=== PATIENT | male | born 1945 | race Native Hawaiian/Other Pacific Islander ===

== ENCOUNTER 2016-11-23 21:54 | Emergency (ER) | payer OTHER, MEDICARE ==
[~2016-11-23] VITALS: Ht 185.4 cm; Wt 129.7 kg
[~2016-11-23 21:54] MED LIST: CITALOPRAM40 MG PO; ELIQUIS5 MG OR; GLIM4TAB PO; HYDR25TA60 PO; JANUVIA100 MG PO; LIPITOR20 MG PO; METF500T PO; METO50TA63 PO; PANT40TA PO; VITAMIN C1 CH1 PO
[2016-11-23] MEDS ORDERED: FARXIGA5 MG PO (22:11)
[2016-11-23 23:37] VITALS: BP 165/81; TEMP 97.6
== END 2016-11-23 23:39 | disposition home or self-care (01) ==
LOC: ED 21:54
DX: S09.8XXA Other specified injuries of head, initial encounter (principal); W18.09XA Striking against other object with subsequent fall, initial encounter; Y92.098 Other place in other non-institutional residence as the place of occurrence of the external cause
CPT/HCPCS: 99283

== ENCOUNTER 2017-08-25 22:04 | Observation (INO) | payer OTHER, MEDICARE ==
[~2017-08-25] VITALS: Ht 185.4 cm; Wt 132.9 kg
[~2017-08-25 22:04] MED LIST changes: +FARXIGA5 MG PO
[2017-08-25 22:12] VITALS: BP 213/95; TEMP 98.3
[2017-08-26 00:28] LABS: PLATELET COUNT 148 K/uL (142-355)
[2017-08-26 00:34] LABS: POTASSIUM 4.1 mmol/L (3.6-5.2)
[2017-08-26 00:47] VITALS: BP 147/65
[2017-08-26 03:15] VITALS: BP 151/83; TEMP 97.6; Ht 185.4 cm; Wt 132.9 kg
[2017-08-26 04:00] VITALS: BP 141/87; TEMP 98.2
[2017-08-26 08:00] VITALS: BP 123/71; TEMP 98.2
[2017-08-26] MEDS ORDERED: METO25TA2 PO (11:34)
[2017-08-26] MEDS ORDERED: JANUMET XR1 TAB PO (11:34)
[2017-08-26] MEDS ORDERED: HM ASPIRIN EC325 MG PO (11:35)
[2017-08-26 12:00] VITALS: BP 135/75; TEMP 97.9
== END 2017-08-26 15:30 | disposition home or self-care (01) ==
LOC: ED 22:04 → MED/SURG 08-26 02:01
PROVIDERS: ADMIT Specialist
DX: I16.0 Hypertensive urgency (principal); G44.89 Other headache syndrome; R73.9 Hyperglycemia, unspecified; I25.10 Atherosclerotic heart disease of native coronary artery without angina pectoris
CPT/HCPCS: 36415; 80048; 82948; 85027; 96374; 96375; 96376; 99220; 99284; G0378; J1170; J2550; J3490

== ENCOUNTER 2017-09-06 09:14 | Emergency (ER) | payer OTHER, MEDICARE ==
[~2017-09-06] VITALS: Ht 185.4 cm; Wt 127.0 kg
[~2017-09-06 09:14] MED LIST changes: +HM ASPIRIN EC325 MG PO; +JANUMET XR1 TAB PO; +METO25TA2 PO
[2017-09-06 10:42] LABS: PLATELET COUNT 161 K/uL (142-355)
[2017-09-06 10:46] LABS: POTASSIUM 4.1 mmol/L (3.6-5.2); SODIUM 131 mmol/L (136-145)
[2017-09-06 15:09] VITALS: BP 164/89; TEMP 98.7
== END 2017-09-06 15:12 | disposition home or self-care (01) ==
LOC: ED 09:14
PROVIDERS: Specialist
DX: M54.89 Other dorsalgia (principal); N20.0 Calculus of kidney; R35.0 Frequency of micturition; R10.31 Right lower quadrant pain
CPT/HCPCS: 80048; 81000; 82272; 82947; 85027; 96365; 96374; 96375; 96376; 99284; J1815; J1885; J2175; J2405

== ENCOUNTER 2017-09-19 07:39 | Emergency (ER) | payer OTHER, MEDICARE ==
[~2017-09-19] VITALS: Ht 182.9 cm; Wt 122.5 kg
[2017-09-19 07:45] VITALS: TEMP 97.7
[2017-09-19] MEDS ORDERED: PROTONIX20 MG PO (08:12)
[2017-09-19] MEDS ORDERED: HYDR-3182 PO (08:13)
[2017-09-19] MEDS ORDERED: HYDROCHLOROT50 MG PO (08:16)
[2017-09-19] MEDS ORDERED: CIPRO500 MG PO (08:18)
[2017-09-19] MEDS ORDERED: CEFTIN250 MG OR (08:18)
[2017-09-19] MEDS ORDERED: METFTAB PO ×2 (08:21→08:24)
[2017-09-19 08:49] LABS: PLATELET COUNT 158 K/uL (142-355)
[2017-09-19 08:59] LABS: POTASSIUM 3.3 mmol/L (3.6-5.2)
[2017-09-19 09:33] LABS: PARTIAL THROMBOPLASTIN TIME 24.8 SECONDS (24.5-33.6)
[2017-09-19 12:00] VITALS: BP 138/76
== END 2017-09-19 14:15 | disposition home or self-care (01) ==
LOC: ED 07:39
DX: R41.0 Disorientation, unspecified (principal); R44.2 Other hallucinations; R00.0 Tachycardia, unspecified; I25.10 Atherosclerotic heart disease of native coronary artery without angina pectoris
CPT/HCPCS: 36415; 80053; 80307; 80320; 80329; 81000; 82550; 84484; 85027; 85610; 85730; 93005; 96374; 99285; J2060

== ENCOUNTER 2017-10-28 08:15 | Outpatient (CLI) | payer OTHER, MEDICARE ==
[~2017-10-28 08:15] MED LIST changes: +CEFTIN250 MG OR; +CIPRO500 MG PO; +HYDR-3182 PO; +HYDROCHLOROT50 MG PO; +METFTAB PO; +PROTONIX20 MG PO
== END 2017-10-28 21:38 | disposition home or self-care (01) ==
LOC: CT 08:15 → LABW 08:15 → CT 21:38
DX: N20.0 Calculus of kidney (principal); N39.0 Urinary tract infection, site not specified
CPT/HCPCS: 81000; 87086; 87088

== ENCOUNTER 2018-12-06 18:59 | Outpatient (CLI) | payer OTHER ==
[2018-12-06 19:23] LABS: PLATELET COUNT 125 K/uL (142-355)
[2018-12-06 19:31] LABS: POTASSIUM 4.2 mmol/L (3.6-5.2)
== END 2018-12-06 23:08 | disposition home or self-care (01) ==
LOC: LAB 18:59
PROVIDERS: Nurse Practitioner
DX: I10 Essential (primary) hypertension (principal)
CPT/HCPCS: 36415; 80053; 81000; 82043; 82306; 82570; 83735; 83970; 84100; 84155; 85027

== ENCOUNTER 2019-05-28 04:30 | Outpatient (CLI) | payer OTHER | END 2019-05-28 04:40 | disposition short-term general hospital (02) | LOC: AMB 04:30 | DX: R42 Dizziness and giddiness (principal); R51 Headache; H57.12 Ocular pain, left eye; R11.2 Nausea with vomiting, unspecified; W18.39XA Other fall on same level, initial encounter; Y93.89 Activity, other specified; Y92.018 Other place in single-family (private) house as the place of occurrence of the external cause | CPT/HCPCS: A0425; A0427 ==

== ENCOUNTER 2019-05-28 04:44 | Emergency (ER) | payer OTHER ==
[~2019-05-28] VITALS: Ht 185.4 cm; Wt 136.1 kg
[2019-05-28 05:35] LABS: PLATELET COUNT 133 K/uL (142-355)
[2019-05-28 05:42] LABS: POTASSIUM 3.6 mmol/L (3.6-5.2)
[2019-05-28 05:46] LABS: PARTIAL THROMBOPLASTIN TIME 29.8 SECONDS (24.5-33.6)
[2019-05-28 06:30] VITALS: BP 163/77; TEMP 97.8
== END 2019-05-28 06:30 | disposition short-term general hospital (02) ==
LOC: ED 04:44
PROVIDERS: Family Medicine
PROC: 0T9B70Z Drainage of Bladder with Drainage Device, Via Natural or Artificial Opening (ICD-10-PCS; principal; 2019-05-28)
DX: S06.340A Traumatic hemorrhage of right cerebrum without loss of consciousness, initial encounter (principal); S06.6X0A Traumatic subarachnoid hemorrhage without loss of consciousness, initial encounter; W18.39XA Other fall on same level, initial encounter; Y92.098 Other place in other non-institutional residence as the place of occurrence of the external cause
CPT/HCPCS: 51702; 80053; 85027; 85610; 85730; 93005; 96360; 96361; 96365; 96374; 96375; 99285; J2405; J2550

== ENCOUNTER 2020-10-01 12:20 | Inpatient (IN) | payer OTHER | END 2020-10-29 11:16 | disposition still patient (30) | LOC: PAVC 12:20 | PROVIDERS: ADMIT Internal Medicine; ATTEND Internal Medicine ==

== ENCOUNTER 2020-10-02 10:08 | Outpatient (CLI) | payer OTHER ==
[2020-10-02 10:41] LABS: PLATELET COUNT 101 K/uL (142-355)
== END 2020-10-02 20:56 | disposition home or self-care (01) ==
LOC: LAB 10:08
PROVIDERS: ATTEND Internal Medicine
DX: E11.22 Type 2 diabetes mellitus with diabetic chronic kidney disease (principal); F01.51 Vascular dementia, unspecified severity, with behavioral disturbance; E53.8 Deficiency of other specified B group vitamins; N40.0 Benign prostatic hyperplasia without lower urinary tract symptoms; D64.89 Other specified anemias; Z79.899 Other long term (current) drug therapy; E55.9 Vitamin D deficiency, unspecified
CPT/HCPCS: 80053; 80061; 82306; 82607; 82728; 82746; 83036; 83540; 84153; 84443; 85027; 87081

== ENCOUNTER 2020-10-07 17:59 | Outpatient (CLI) | payer OTHER | END 2020-10-07 23:15 | disposition home or self-care (01) | LOC: LAB 17:59 | PROVIDERS: ATTEND Internal Medicine | DX: R30.9 Painful micturition, unspecified (principal); R30.0 Dysuria | CPT/HCPCS: 81000 ==

== ENCOUNTER 2020-10-25 07:01 | Outpatient (CLI) | payer OTHER | END 2020-10-25 20:00 | disposition home or self-care (01) | LOC: LAB 07:01 | PROVIDERS: ATTEND Internal Medicine | DX: R82.998 Other abnormal findings in urine (principal); R30.0 Dysuria; R34 Anuria and oliguria | CPT/HCPCS: 81000; 87077; 87086; 87088; 87186 ==

== ENCOUNTER 2020-10-29 11:45 | Inpatient (IN) | payer OTHER | END 2020-11-29 12:22 | disposition still patient (30) | LOC: PAVC 11:45 | PROVIDERS: ADMIT Internal Medicine; ATTEND Internal Medicine ==

== ENCOUNTER 2020-11-03 22:08 | Emergency (ER) | payer OTHER ==
[~2020-11-03] VITALS: Ht 185.4 cm; Wt 136.1 kg
[2020-11-03 22:41] LABS: PLATELET COUNT 104 K/uL (142-355)
[2020-11-03 22:50] LABS: POTASSIUM 4.2 mmol/L (3.6-5.2)
[2020-11-03 23:35] VITALS: BP 129/66; TEMP 98.2
== END 2020-11-03 23:39 ==
LOC: ED 22:08
PROVIDERS: Family Medicine
DX: S50.01XA Contusion of right elbow, initial encounter (principal); N39.0 Urinary tract infection, site not specified; W18.39XA Other fall on same level, initial encounter; Y92.128 Other place in nursing home as the place of occurrence of the external cause
CPT/HCPCS: 80053; 81000; 85027; 87088; 99284

== ENCOUNTER 2020-11-14 11:12 | Outpatient (CLI) | payer OTHER | END 2020-11-14 22:13 | disposition home or self-care (01) | LOC: INF 11:12 | PROVIDERS: ATTEND Internal Medicine | DX: Z23 Encounter for immunization (principal) | CPT/HCPCS: 81000; 87088; 96372 ==

== ENCOUNTER 2020-11-14 17:07 | Outpatient (CLI) | payer OTHER | END 2020-11-14 22:25 | disposition home or self-care (01) | LOC: LAB 17:07 | PROVIDERS: ATTEND Internal Medicine | DX: N39.0 Urinary tract infection, site not specified (principal) | CPT/HCPCS: 81000; 87088 ==

== ENCOUNTER 2020-11-15 21:11 | Emergency (ER) | payer OTHER ==
[2020-11-15 22:22] LABS: PLATELET COUNT 106 K/uL (142-355)
[2020-11-15 22:30] LABS: POTASSIUM 4.2 mmol/L (3.6-5.2); SODIUM 134 mmol/L (136-145)
[2020-11-15 22:41] LABS: PARTIAL THROMBOPLASTIN TIME 27.1 SECONDS (24.5-33.6)
[2020-11-16 03:35] VITALS: BP 119/61; TEMP 98.9
== END 2020-11-16 03:35 ==
LOC: ED 21:11
PROVIDERS: Hospitalist
DX: B35.6 Tinea cruris (principal); N39.0 Urinary tract infection, site not specified; R06.02 Shortness of breath; G93.89 Other specified disorders of brain; Z20.828 Contact with and (suspected) exposure to other viral communicable diseases
CPT/HCPCS: 36415; 80053; 81000; 82550; 83605; 83880; 84484; 85027; 85610; 85730; 87040; 87077; 87205; 87635; 93005; 96360; 96361; 96365; 96366; 99284; J0132; J1956; U0003

== ENCOUNTER 2020-11-29 13:51 | Inpatient (IN) | payer OTHER | END 2020-12-29 11:26 | disposition still patient (30) | LOC: PAVC 13:51 | PROVIDERS: ADMIT Internal Medicine; ATTEND Internal Medicine ==

== ENCOUNTER 2020-12-29 11:46 | Inpatient (IN) | payer OTHER | END 2021-01-29 15:45 | disposition still patient (30) | LOC: PAVC 11:46 | PROVIDERS: ADMIT Internal Medicine; ATTEND Internal Medicine ==

== ENCOUNTER 2021-01-29 16:38 | Inpatient (IN) | payer OTHER | END 2021-02-28 08:00 | disposition still patient (30) | LOC: PAVC 16:38 | PROVIDERS: ADMIT Internal Medicine; ATTEND Internal Medicine ==

== ENCOUNTER 2021-02-28 09:00 | Inpatient (IN) | payer OTHER | END 2021-03-31 08:00 | disposition still patient (30) | LOC: PAVC 09:00 | PROVIDERS: ADMIT Internal Medicine; ATTEND Internal Medicine ==

== ENCOUNTER 2021-03-28 01:04 | Outpatient (CLI) | payer OTHER | END 2021-03-28 22:00 | disposition home or self-care (01) | LOC: LAB 01:04 | PROVIDERS: ATTEND Internal Medicine | DX: R82.998 Other abnormal findings in urine (principal) | CPT/HCPCS: 81000; 87077; 87086; 87088; 87186 ==

== ENCOUNTER 2021-03-31 09:00 | Inpatient (IN) | payer OTHER | END 2021-05-01 13:51 | disposition still patient (30) | LOC: PAVC 09:00 | PROVIDERS: ADMIT Internal Medicine; ATTEND Internal Medicine ==

== ENCOUNTER 2021-04-01 08:44 | Outpatient (CLI) | payer OTHER ==
[2021-04-01 10:39] LABS: PLATELET COUNT 97 K/uL (142-355)
[2021-04-01 11:26] LABS: POTASSIUM 4.2 mmol/L (3.6-5.2)
== END 2021-04-01 22:36 | disposition home or self-care (01) ==
LOC: LAB 08:44
PROVIDERS: ATTEND Internal Medicine
DX: E11.22 Type 2 diabetes mellitus with diabetic chronic kidney disease (principal); N18.2 Chronic kidney disease, stage 2 (mild); N40.0 Benign prostatic hyperplasia without lower urinary tract symptoms
CPT/HCPCS: 80053; 80061; 82306; 82607; 82728; 82746; 83036; 83540; 84443; 85027

== ENCOUNTER 2021-04-23 15:15 | Outpatient (CLI) | payer OTHER | END 2021-04-23 22:17 | disposition home or self-care (01) | LOC: LAB 15:15 | PROVIDERS: ATTEND Internal Medicine | DX: R30.0 Dysuria (principal) | CPT/HCPCS: 81000; 87077; 87086; 87088; 87186 ==

== ENCOUNTER 2021-05-01 12:57 | Outpatient (CLI) | payer OTHER ==
[~2021-05-01] VITALS: Ht 154.9 cm; Wt 90.7 kg
== END 2021-05-01 23:00 | disposition home or self-care (01) ==
LOC: INF 12:57
PROVIDERS: ATTEND Internal Medicine
DX: N39.0 Urinary tract infection, site not specified (principal)
CPT/HCPCS: J0696

== ENCOUNTER 2021-05-01 14:17 | Inpatient (IN) | payer OTHER | END 2021-05-31 09:39 | disposition still patient (30) | LOC: PAVC 14:17 | PROVIDERS: ADMIT Internal Medicine; ATTEND Internal Medicine ==

== ENCOUNTER 2021-07-31 12:47 | Inpatient (IN) | payer OTHER | END 2021-08-31 09:09 | disposition still patient (30) | LOC: PAVC 12:47 | PROVIDERS: ADMIT Internal Medicine; ATTEND Internal Medicine ==

== ENCOUNTER 2021-08-31 09:34 | Inpatient (IN) | payer OTHER | END 2021-10-01 08:58 | disposition still patient (30) | LOC: PAVC 09:34 | PROVIDERS: ADMIT Internal Medicine; ATTEND Internal Medicine ==

== ENCOUNTER 2021-10-01 07:51 | Outpatient (CLI) | payer OTHER ==
[2021-10-01 08:54] LABS: PLATELET COUNT 91 K/uL (142-355)
[2021-10-01 09:33] LABS: POTASSIUM 4.3 mmol/L (3.6-5.2)
== END 2021-10-01 19:23 | disposition home or self-care (01) ==
LOC: LAB 07:51
PROVIDERS: ATTEND Internal Medicine
DX: E11.22 Type 2 diabetes mellitus with diabetic chronic kidney disease (principal); E11.65 Type 2 diabetes mellitus with hyperglycemia; N18.2 Chronic kidney disease, stage 2 (mild)
CPT/HCPCS: 80053; 80061; 82306; 82607; 82728; 82746; 83036; 83540; 84443; 85027

== ENCOUNTER 2021-10-01 13:17 | Inpatient (IN) | payer OTHER | END 2021-10-29 09:10 | disposition still patient (30) | LOC: PAVC 13:17 | PROVIDERS: ADMIT Internal Medicine; ATTEND Internal Medicine | DX: R56.9 Unspecified convulsions (principal); R13.11 Dysphagia, oral phase; R41.841 Cognitive communication deficit; M62.81 Muscle weakness (generalized); Z74.1 Need for assistance with personal care; R26.89 Other abnormalities of gait and mobility | CPT/HCPCS: 81000; 87088 ==

== ENCOUNTER 2021-10-08 12:54 | Outpatient (CLI) | payer OTHER ==
[2021-10-08 13:36] LABS: PLATELET COUNT 114 K/uL (142-355)
[2021-10-08 14:33] LABS: POTASSIUM 4.4 mmol/L (3.6-5.2)
== END 2021-10-08 19:21 | disposition home or self-care (01) ==
LOC: RAD 12:54
PROVIDERS: ATTEND Internal Medicine
DX: R94.2 Abnormal results of pulmonary function studies (principal); R05.9 Cough, unspecified
CPT/HCPCS: 80053; 85027

== ENCOUNTER 2021-10-08 21:17 | Outpatient (CLI) | payer OTHER | END 2021-10-08 23:27 | disposition home or self-care (01) | LOC: RAD 21:17 | PROVIDERS: ATTEND Internal Medicine | DX: I69.054 Hemiplegia and hemiparesis following nontraumatic subarachnoid hemorrhage affecting left non-dominant side (principal); I67.2 Cerebral atherosclerosis ==

== ENCOUNTER 2021-10-10 18:58 | Emergency (ER) | payer OTHER ==
[~2021-10-10] VITALS: Ht 185.4 cm; Wt 136.1 kg
[2021-10-10 19:46] LABS: PLATELET COUNT 140 K/uL (142-355)
[2021-10-10 19:58] LABS: POTASSIUM 4.4 mmol/L (3.6-5.2)
[2021-10-10 22:40] VITALS: BP 187/106; TEMP 98.5
== END 2021-10-10 22:45 | disposition short-term general hospital (02) ==
LOC: ED 18:58
PROVIDERS: Emergency Medicine
DX: R56.9 Unspecified convulsions (principal); E87.1 Hypo-osmolality and hyponatremia; I48.91 Unspecified atrial fibrillation; Z11.52 Encounter for screening for COVID-19
CPT/HCPCS: 36415; 80048; 84484; 85027; 87635; 93005; 96360; 96361; 96375; 99284; J2060; J3490; U0003

== ENCOUNTER 2021-10-28 19:30 | Outpatient (CLI) | payer OTHER | END 2021-10-28 20:01 | disposition home or self-care (01) | LOC: LAB 19:30 | PROVIDERS: ATTEND Internal Medicine | DX: R82.79 Other abnormal findings on microbiological examination of urine (principal) | CPT/HCPCS: 81000; 87086; 87088 ==

== ENCOUNTER 2021-10-29 15:57 | Inpatient (IN) | payer OTHER | END 2021-11-29 14:14 | disposition still patient (30) | LOC: PAVC 15:57 | PROVIDERS: ADMIT Internal Medicine; ATTEND Internal Medicine ==

== ENCOUNTER 2021-11-29 15:31 | Inpatient (IN) | payer OTHER | END 2021-12-29 10:41 | disposition still patient (30) | LOC: PAVC 15:31 | PROVIDERS: ADMIT Internal Medicine; ATTEND Internal Medicine ==

== ENCOUNTER 2021-12-29 02:44 | Inpatient (IN) | payer OTHER | END 2022-01-29 10:02 | disposition still patient (30) | LOC: PAVC 02:44 | PROVIDERS: ADMIT Internal Medicine; ATTEND Internal Medicine ==

== ENCOUNTER 2022-01-29 16:17 | Inpatient (IN) | payer OTHER | END 2022-02-28 09:17 | disposition still patient (30) | LOC: PAVC 16:17 | PROVIDERS: ADMIT Internal Medicine; ATTEND Internal Medicine ==

== ENCOUNTER 2022-02-25 05:53 | Outpatient (CLI) | payer OTHER | END 2022-02-25 20:33 | disposition home or self-care (01) | LOC: LAB 05:53 | PROVIDERS: ATTEND Internal Medicine | DX: R30.9 Painful micturition, unspecified (principal) | CPT/HCPCS: 81000; 87077; 87086; 87088; 87185; 87186 ==

== ENCOUNTER 2022-02-28 13:10 | Inpatient (IN) | payer OTHER | END 2022-03-31 09:11 | disposition still patient (30) | LOC: PAVC 13:10 | PROVIDERS: ADMIT Internal Medicine; ATTEND Internal Medicine ==

== ENCOUNTER 2022-03-25 14:47 | Outpatient (CLI) | payer OTHER | END 2022-03-25 19:14 | disposition home or self-care (01) | LOC: LAB 14:47 | PROVIDERS: ATTEND Internal Medicine | DX: R30.0 Dysuria (principal) | CPT/HCPCS: 81000 ==

== ENCOUNTER 2022-03-31 07:22 | Outpatient (CLI) | payer OTHER ==
[2022-03-31 08:00] LABS: PLATELET COUNT 90 K/uL (142-355)
== END 2022-03-31 18:54 | disposition home or self-care (01) ==
LOC: LAB 07:22
PROVIDERS: ATTEND Internal Medicine
DX: E11.22 Type 2 diabetes mellitus with diabetic chronic kidney disease (principal); I13.10 Hypertensive heart and chronic kidney disease without heart failure, with stage 1 through stage 4 chronic kidney disease, or unspecified chronic kidney disease; N18.9 Chronic kidney disease, unspecified
CPT/HCPCS: 80053; 80061; 82306; 82607; 82728; 82746; 83036; 83540; 84443; 85027

== ENCOUNTER 2022-03-31 10:26 | Inpatient (IN) | payer OTHER | END 2022-05-01 09:14 | disposition still patient (30) | LOC: PAVC 10:26 | PROVIDERS: ADMIT Internal Medicine; ATTEND Internal Medicine ==

== ENCOUNTER 2022-05-01 15:03 | Inpatient (IN) | payer OTHER | END 2022-05-31 10:39 | disposition still patient (30) | LOC: PAVC 15:03 | PROVIDERS: ADMIT Internal Medicine Endocrinology, Diabetes & Metabolism; ATTEND Internal Medicine Endocrinology, Diabetes & Metabolism ==

== ENCOUNTER 2022-05-31 14:49 | Inpatient (IN) | payer OTHER | END 2022-07-01 12:15 | disposition still patient (30) | LOC: PAVC 14:49 | PROVIDERS: ADMIT Internal Medicine Endocrinology, Diabetes & Metabolism; ATTEND Internal Medicine Endocrinology, Diabetes & Metabolism ==

== ENCOUNTER 2022-07-01 14:14 | Inpatient (IN) | payer OTHER | END 2022-07-31 15:32 | disposition still patient (30) | LOC: PAVC 14:14 | PROVIDERS: ADMIT Internal Medicine Endocrinology, Diabetes & Metabolism; ATTEND Internal Medicine Endocrinology, Diabetes & Metabolism ==

== ENCOUNTER 2022-07-31 16:19 | Inpatient (IN) | payer OTHER | END 2022-08-31 10:52 | disposition still patient (30) | LOC: PAVC 16:19 | PROVIDERS: ADMIT Internal Medicine Endocrinology, Diabetes & Metabolism; ATTEND Internal Medicine Endocrinology, Diabetes & Metabolism ==

== ENCOUNTER 2022-08-19 14:43 | Emergency (ER) | payer OTHER ==
[~2022-08-19] VITALS: Ht 185.4 cm; Wt 136.1 kg
[2022-08-19 14:43] VITALS: TEMP 97.7
[2022-08-19 17:27] VITALS: BP 128/70
== END 2022-08-19 17:27 ==
LOC: ED 14:43
DX: S32.019A Unspecified fracture of first lumbar vertebra, initial encounter for closed fracture (principal); W19.XXXA Unspecified fall, initial encounter; Y93.89 Activity, other specified; Y92.89 Other specified places as the place of occurrence of the external cause; S00.03XA Contusion of scalp, initial encounter
CPT/HCPCS: 99283

== ENCOUNTER 2022-08-31 14:26 | Inpatient (IN) | payer OTHER ==
[~2022-08-31 14:26] MED LIST changes: +METO-837 PO; -METO25TA2 PO
[2022-09-15] MEDS ORDERED: ARIPIPRAZOLE15 MG PO (13:21)
[2022-09-15] MEDS ORDERED: CELEXA40 MG PO (13:22)
[2022-09-15] MEDS ORDERED: VITAMIN DE1000 MCG/M IM (13:24)
[2022-09-15] MEDS ORDERED: MIRALAX MIX-IN17 GM PO (13:26)
[2022-09-15] MEDS ORDERED: PRAVASTATIN PO (13:27)
[2022-09-15] MEDS ORDERED: MOBIC7.5 M1 PO (13:27)
[2022-09-15] MEDS ORDERED: MONT10TA PO (13:28)
[2022-09-15] MEDS ORDERED: TRAZ50TA36 PO (13:29)
[2022-09-15] MEDS ORDERED: VITAMIN D32000 UNI1 PO (13:30)
[2022-09-15] MEDS ORDERED: AMPHETAMINE-DEXTROAM PO (13:31)
[2022-09-15] MEDS ORDERED: DQZATE100 MG PO (13:32)
[2022-09-15] MEDS ORDERED: TAMS0.4C PO (13:33)
[2022-09-15] MEDS ORDERED: FLONASE SE27.5 MCG/S NAS (13:34)
[2022-09-15] MEDS ORDERED: LEVE500T5 PO (13:35)
[2022-09-15] MEDS ORDERED: METF500T PO (13:35)
[2022-09-15] MEDS ORDERED: REFRESH TEARS0.5 % OPTH ×2 (13:36→13:39)
[2022-09-15] MEDS ORDERED: OXYGEN (13:37)
[2022-09-15] MEDS ORDERED: OXYC5TAB53 PO (13:38)
[2022-09-15] MEDS ORDERED: TYLENOL325 MG PO (13:41)
[2022-09-20] MEDS ORDERED: NITR50CA PO (11:45)
== END 2022-10-01 09:28 | disposition still patient (30) ==
LOC: PAVC 14:26
PROVIDERS: ADMIT Internal Medicine Endocrinology, Diabetes & Metabolism; ATTEND Internal Medicine Endocrinology, Diabetes & Metabolism

== ENCOUNTER 2022-09-14 18:22 | Inpatient (IN) | payer OTHER ==
[~2022-09-14] VITALS: Ht 188 cm; Wt 118.4 kg
[2022-09-14 18:25] VITALS: BP 132/71; TEMP 99.7
[2022-09-14 19:00] VITALS: BP 117/58
[2022-09-14 19:33] LABS: PLATELET COUNT 103 K/uL (142-355)
[2022-09-14 19:52] LABS: POTASSIUM 4.2 mmol/L (3.6-5.2)
[2022-09-14 20:00] VITALS: BP 126/66
[2022-09-14 21:00] VITALS: BP 117/54
[2022-09-14 22:00] VITALS: BP 100/55
[2022-09-14 22:49] VITALS: BP 94/52; TEMP 99.3; Ht 188 cm; Wt 118.4 kg
[2022-09-15] VITALS (7 sets, daily range): BP systolic 97–126; BP diastolic 44–77; TEMP 97.2–99
[2022-09-15 05:09] LABS: PLATELET COUNT 79 K/uL (142-355)
[2022-09-15 06:18] LABS: POTASSIUM 4.2 mmol/L (3.6-5.2)
[2022-09-15] MEDS ORDERED: ARIPIPRAZOLE15 MG PO (13:21)
[2022-09-15] MEDS ORDERED: CELEXA40 MG PO (13:22)
[2022-09-15] MEDS ORDERED: VITAMIN DE1000 MCG/M IM (13:24)
[2022-09-15] MEDS ORDERED: MIRALAX MIX-IN17 GM PO (13:26)
[2022-09-15] MEDS ORDERED: PRAVASTATIN PO (13:27)
[2022-09-15] MEDS ORDERED: MOBIC7.5 M1 PO (13:27)
[2022-09-15] MEDS ORDERED: MONT10TA PO (13:28)
[2022-09-15] MEDS ORDERED: TRAZ50TA36 PO (13:29)
[2022-09-15] MEDS ORDERED: VITAMIN D32000 UNI1 PO (13:30)
[2022-09-15] MEDS ORDERED: AMPHETAMINE-DEXTROAM PO (13:31)
[2022-09-15] MEDS ORDERED: DQZATE100 MG PO (13:32)
[2022-09-15] MEDS ORDERED: TAMS0.4C PO (13:33)
[2022-09-15] MEDS ORDERED: FLONASE SE27.5 MCG/S NAS (13:34)
[2022-09-15] MEDS ORDERED: METF500T PO (13:35)
[2022-09-15] MEDS ORDERED: LEVE500T5 PO (13:35)
[2022-09-15] MEDS ORDERED: REFRESH TEARS0.5 % OPTH ×2 (13:36→13:39)
[2022-09-15] MEDS ORDERED: OXYGEN (13:37)
[2022-09-15] MEDS ORDERED: OXYC5TAB53 PO (13:38)
[2022-09-15] MEDS ORDERED: TYLENOL325 MG PO (13:41)
[2022-09-16 03:31] VITALS: BP 132/77; TEMP 99
[2022-09-16 08:00] VITALS: BP 136/73; TEMP 98.4
[2022-09-16 12:00] VITALS: BP 116/61; TEMP 98.9
[2022-09-16 12:05] LABS: POTASSIUM 4.5 mmol/L (3.6-5.2)
[2022-09-16 12:12] LABS: PLATELET COUNT 82 K/uL (142-355)
[2022-09-16 16:00] VITALS: BP 142/74; TEMP 98.2
[2022-09-16 19:32] VITALS: BP 155/89; TEMP 98.3
[2022-09-16 23:33] VITALS: BP 154/87; TEMP 98.7
[2022-09-17 03:32] VITALS: BP 175/79; TEMP 98.7
[2022-09-17 08:00] VITALS: BP 165/84; TEMP 98.3
[2022-09-17 12:00] VITALS: BP 162/118; TEMP 97.9
[2022-09-17 16:00] VITALS: BP 136/73; TEMP 97.4
[2022-09-17 20:00] VITALS: BP 121/60; TEMP 98.7
[2022-09-18] VITALS: BP 155/68; TEMP 97.9
[2022-09-18 04:00] VITALS: BP 154/75; TEMP 97.9
[2022-09-18 08:00] VITALS: BP 145/81; TEMP 97.8
[2022-09-18 12:00] VITALS: BP 139/83; TEMP 98.1
[2022-09-18 16:00] VITALS: BP 142/86; TEMP 97.9
[2022-09-18 20:00] VITALS: BP 144/61; TEMP 97.9
[2022-09-19] VITALS: BP 115/48; BP 140/66; TEMP 97.3
[2022-09-19 04:00] VITALS: BP 131/71; TEMP 96.9
[2022-09-19 08:00] VITALS: BP 155/80; TEMP 97.8
[2022-09-19 12:00] VITALS: BP 119/76; TEMP 97.8
[2022-09-19 15:50] VITALS: BP 119/76; TEMP 98
[2022-09-19 17:00] LABS: PLATELET COUNT 119 K/uL (142-355)
[2022-09-19 19:42] VITALS: BP 124/62; TEMP 98.6
[2022-09-20 00:02] VITALS: BP 141/67; TEMP 98.5
[2022-09-20 04:02] VITALS: BP 108/60; TEMP 98.6
[2022-09-20 08:00] VITALS: BP 132/56; TEMP 98.6
[2022-09-20] MEDS ORDERED: NITR50CA PO (11:45)
[2022-09-20 12:00] VITALS: BP 121/63; TEMP 98
== END 2022-09-20 15:05 | disposition home or self-care (01) | DRG 999 ==
LOC: ED 18:22 → MED/SURG 21:08
PROVIDERS: ADMIT Family Medicine; ATTEND Internal Medicine
DX: J18.8 Other pneumonia, unspecified organism (principal); N39.0 Urinary tract infection, site not specified; B95.2 Enterococcus as the cause of diseases classified elsewhere; E11.65 Type 2 diabetes mellitus with hyperglycemia; R53.81 Other malaise; I11.0 Hypertensive heart disease with heart failure; I50.33 Acute on chronic diastolic (congestive) heart failure; I69.359 Hemiplegia and hemiparesis following cerebral infarction affecting unspecified side; G40.802 Other epilepsy, not intractable, without status epilepticus; K21.9 Gastro-esophageal reflux disease without esophagitis; N40.0 Benign prostatic hyperplasia without lower urinary tract symptoms; F32.A Depression, unspecified
CPT/HCPCS: 36415; 80048; 80053; 80202; 81000; 82948; 83605; 83630; 85027; 87015; 87040; 87045; 87077; 87086; 87088; 87186; 87324; 87328; 87329; 87449; 87502; 87635; 87899; 94664; 94760; 96360; 96361; 96365; 96366; 96367; 96372; 99284; J1650; J1815; J1885; J1956; J2405; J2543; J3370; U0003

== ENCOUNTER 2022-10-01 08:24 | Outpatient (CLI) | payer OTHER ==
[~2022-10-01 08:24] MED LIST changes: +AMPHETAMINE-DEXTROAM PO; +ARIPIPRAZOLE15 MG PO; +CELEXA40 MG PO; +DQZATE100 MG PO; +FLONASE SE27.5 MCG/S NAS; +LEVE500T5 PO; +MIRALAX MIX-IN17 GM PO; +MOBIC7.5 M1 PO; +MONT10TA PO; +NITR50CA PO; +OXYC5TAB53 PO; +OXYGEN; +PRAVASTATIN PO; +REFRESH TEARS0.5 % OPTH; +TAMS0.4C PO; +TRAZ50TA36 PO; +TYLENOL325 MG PO; +VITAMIN D32000 UNI1 PO; +VITAMIN DE1000 MCG/M IM
[2022-10-01 08:43] LABS: PLATELET COUNT 112 K/uL (142-355)
[2022-10-01 09:19] LABS: POTASSIUM 4.2 mmol/L (3.6-5.2)
== END 2022-10-01 19:05 | disposition home or self-care (01) ==
LOC: LAB 08:24
PROVIDERS: ATTEND Internal Medicine Endocrinology, Diabetes & Metabolism
DX: E11.9 Type 2 diabetes mellitus without complications (principal); I69.054 Hemiplegia and hemiparesis following nontraumatic subarachnoid hemorrhage affecting left non-dominant side; N40.0 Benign prostatic hyperplasia without lower urinary tract symptoms; E78.2 Mixed hyperlipidemia; I13.10 Hypertensive heart and chronic kidney disease without heart failure, with stage 1 through stage 4 chronic kidney disease, or unspecified chronic kidney disease; N18.2 Chronic kidney disease, stage 2 (mild); I25.10 Atherosclerotic heart disease of native coronary artery without angina pectoris
CPT/HCPCS: 80053; 80061; 82306; 82607; 82728; 82746; 83036; 83540; 84153; 84443; 85027

== ENCOUNTER 2022-10-01 12:29 | Inpatient (IN) | payer OTHER | END 2022-10-29 15:22 | disposition still patient (30) | LOC: PAVC 12:29 | PROVIDERS: ADMIT Internal Medicine Endocrinology, Diabetes & Metabolism; ATTEND Internal Medicine Endocrinology, Diabetes & Metabolism ==

== ENCOUNTER 2022-10-27 07:34 | Outpatient (CLI) | payer OTHER ==
[2022-10-27 07:56] LABS: PLATELET COUNT 103 K/uL (142-355)
[2022-10-27 08:28] LABS: POTASSIUM 3.9 mmol/L (3.6-5.2)
== END 2022-10-27 18:54 | disposition home or self-care (01) ==
LOC: LAB 07:34
PROVIDERS: ATTEND Family Medicine
DX: N39.0 Urinary tract infection, site not specified (principal); F01.518 Vascular dementia, unspecified severity, with other behavioral disturbance
CPT/HCPCS: 80053; 85027

== ENCOUNTER 2022-10-29 11:14 | Outpatient (CLI) | payer OTHER | END 2022-10-29 19:15 | disposition home or self-care (01) | LOC: LAB 11:14 | PROVIDERS: ATTEND Family Medicine | DX: R41.82 Altered mental status, unspecified (principal) | CPT/HCPCS: 81000; 87077; 87086; 87088; 87186 ==

== ENCOUNTER 2022-10-29 16:15 | Inpatient (IN) | payer OTHER ==
[2022-11-08] MEDS ORDERED: CEFT1INJ27 INJ (12:10)
[2022-11-08] MEDS ORDERED: MIRALAX17 GM PO (15:10)
[2022-11-08] MEDS ORDERED: AMPHETAMINE SULFATE PO (16:31)
[2022-11-08] MEDS ORDERED: OLANZAPINE7.5 MG PO (16:36)
[2022-11-20] MEDS ORDERED: ACET-206 PO (10:01)
[2022-11-20] MEDS ORDERED: ATOR20TA2 PO (10:02)
[2022-11-20] MEDS ORDERED: DOCU100C10 PO (10:04)
[2022-11-20] MEDS ORDERED: METO-837 PO (10:05)
[2022-11-20] MEDS ORDERED: METF500T PO (10:05)
[2022-11-20] MEDS ORDERED: LEVE500T5 PO (10:05)
[2022-11-20] MEDS ORDERED: ESCI10TA PO (10:05)
[2022-11-20] MEDS ORDERED: PANTOPRAZOLE 40MG TA PO (10:06)
[2022-11-20] MEDS ORDERED: TAMS0.4C PO (10:06)
[2022-11-20] MEDS ORDERED: MONT10TA PO (10:06)
[2022-11-20] MEDS ORDERED: OLAN2.5T2 PO (10:06)
[2022-11-20] MEDS ORDERED: MIRALAX 17GM PAK PO (10:06)
[2022-11-20] MEDS ORDERED: TRAZ50TA36 PO (10:07)
== END 2022-11-29 12:53 | disposition still patient (30) ==
LOC: PAVC 16:15
PROVIDERS: ADMIT Family Medicine; ATTEND Family Medicine

== ENCOUNTER 2022-11-07 23:42 | Observation (INO) | payer OTHER ==
[~2022-11-07] VITALS: Ht 185.4 cm; Wt 114.8 kg
[2022-11-07 23:42] VITALS: BP 141/80; TEMP 98.2
[2022-11-08] VITALS (10 sets, daily range): BP systolic 102–163; BP diastolic 60–92; TEMP 96.9–98.2; Ht 185.4 cm; Wt 114.8 kg
[2022-11-08 00:41] LABS: POTASSIUM 4.1 mmol/L (3.6-5.2)
[2022-11-08 00:46] LABS: PLATELET COUNT 129 K/uL (142-355)
[2022-11-08 08:26] LABS: PLATELET COUNT 120 K/uL (142-355)
[2022-11-08] MEDS ORDERED: CEFT1INJ27 INJ (12:10)
[2022-11-08] MEDS ORDERED: MIRALAX17 GM PO (15:10)
[2022-11-08] MEDS ORDERED: AMPHETAMINE SULFATE PO (16:31)
[2022-11-08] MEDS ORDERED: OLANZAPINE7.5 MG PO (16:36)
== END 2022-11-08 13:52 | disposition other institution (70) ==
LOC: ED 23:42 → MED/SURG 11-08 03:15
PROVIDERS: Internal Medicine; ADMIT Emergency Medicine; ATTEND Internal Medicine
DX: N39.0 Urinary tract infection, site not specified (principal); Z86.73 Personal history of transient ischemic attack (TIA), and cerebral infarction without residual deficits; G40.802 Other epilepsy, not intractable, without status epilepticus; F32.A Depression, unspecified; N40.0 Benign prostatic hyperplasia without lower urinary tract symptoms; K21.9 Gastro-esophageal reflux disease without esophagitis; E11.22 Type 2 diabetes mellitus with diabetic chronic kidney disease; I12.9 Hypertensive chronic kidney disease with stage 1 through stage 4 chronic kidney disease, or unspecified chronic kidney disease; N18.31 Chronic kidney disease, stage 3a
CPT/HCPCS: 36415; 80053; 81000; 82607; 82746; 85027; 87088; 87635; 93005; 96360; 96361; 96365; 96375; 99220; 99285; G0378; J0696; J2060; J2405; U0003

== ENCOUNTER 2022-11-29 13:25 | Inpatient (IN) | payer OTHER ==
[~2022-11-29 13:25] MED LIST changes: +ACET-206 PO; +AMPHETAMINE SULFATE PO; +ATOR20TA2 PO; +CEFT1INJ27 INJ; +DOCU100C10 PO; +ESCI10TA PO; +MIRALAX 17GM PAK PO; +MIRALAX17 GM PO; +OLAN2.5T2 PO; +OLANZAPINE7.5 MG PO; +PANTOPRAZOLE 40MG TA PO
== END 2022-12-29 16:43 | disposition still patient (30) ==
LOC: PAVC 13:25
PROVIDERS: ADMIT Family Medicine; ATTEND Family Medicine

== ENCOUNTER 2022-12-29 17:49 | Inpatient (IN) | payer OTHER | END 2023-01-29 12:20 | disposition still patient (30) | LOC: PAVC 17:49 | PROVIDERS: ADMIT Family Medicine; ATTEND Family Medicine ==

== ENCOUNTER 2023-01-29 12:31 | Inpatient (IN) | payer OTHER | END 2023-02-28 17:43 | disposition still patient (30) | LOC: PAVC 12:31 | PROVIDERS: ADMIT Family Medicine; ATTEND Family Medicine ==

== ENCOUNTER 2023-03-31 11:08 | Outpatient (CLI) | payer OTHER ==
[2023-03-31 12:17] LABS: PLATELET COUNT 95 K/uL (142-355)
[2023-03-31 12:18] LABS: POTASSIUM 4.2 mmol/L (3.6-5.2)
== END 2023-03-31 20:23 | disposition home or self-care (01) ==
LOC: LAB 11:08
PROVIDERS: ATTEND Family Medicine
DX: E11.22 Type 2 diabetes mellitus with diabetic chronic kidney disease (principal); I69.054 Hemiplegia and hemiparesis following nontraumatic subarachnoid hemorrhage affecting left non-dominant side; I13.10 Hypertensive heart and chronic kidney disease without heart failure, with stage 1 through stage 4 chronic kidney disease, or unspecified chronic kidney disease; E78.2 Mixed hyperlipidemia; N18.31 Chronic kidney disease, stage 3a
CPT/HCPCS: 36415; 80053; 80061; 82306; 82607; 82728; 82746; 83036; 83540; 84443; 85027